=== PATIENT | male | born 1995 | race Two or more races ===

== ENCOUNTER 2020-12-07 20:11 | Inpatient (IN) | payer OTHER ==
[~2020-12-07] VITALS: Ht 167.6 cm; Wt 70.3 kg
[2020-12-07] MEDS ORDERED: PROTONIX20 MG PO (20:25)
[2020-12-07] MEDS ORDERED: CARAFATE1 GM/10 ML PO (20:25)
[2020-12-08] MEDS ORDERED: METRONIDAZOLE500 MG (11:23)
[2020-12-08] MEDS ORDERED: CIPROFLOXACIN500 MG (11:23)
== END 2021-01-07 16:31 | disposition home or self-care (01) | DRG 387 ==
LOC: ER 20:11 → MEDJ 12-08 09:12 → SEC-K 12-08 09:12 → MEDJ 12-08 14:56
PROVIDERS: ADMIT Internal Medicine; ATTEND Internal Medicine
PROC: 0DBP8ZX Excision of Rectum, Via Natural or Artificial Opening Endoscopic, Diagnostic (ICD-10-PCS; principal; 2020-12-14)
PROC: 0DBN8ZX Excision of Sigmoid Colon, Via Natural or Artificial Opening Endoscopic, Diagnostic (ICD-10-PCS; 2020-12-14)
PROC: 02HV33Z Insertion of Infusion Device into Superior Vena Cava, Percutaneous Approach (ICD-10-PCS; 2020-12-22)
PROC: 30233N1 Transfusion of Nonautologous Red Blood Cells into Peripheral Vein, Percutaneous Approach (ICD-10-PCS; 2021-01-03)
DX: K51.011 Ulcerative (chronic) pancolitis with rectal bleeding (principal); F43.21 Adjustment disorder with depressed mood; D64.9 Anemia, unspecified; D18.09 Hemangioma of other sites

== ENCOUNTER 2021-01-09 05:21 | Inpatient (IN) | payer OTHER ==
[~2021-01-09] VITALS: Ht 170.2 cm; Wt 54.0 kg
[~2021-01-09 05:21] MED LIST: CARAFATE1 GM/10 ML PO; CIPROFLOXACIN500 MG; METRONIDAZOLE500 MG; PROTONIX20 MG PO
[2021-01-09] MEDS ORDERED: CARAFATE1 GM (05:39)
[2021-01-09] MEDS ORDERED: RAYOS5 MG (05:39)
[2021-01-09] MEDS ORDERED: PROTONIX40 M1 (05:39)
[2021-01-09] MEDS ORDERED: PRE PROTEIN 2030 ML (05:40)
== END 2021-01-26 17:58 | disposition designated cancer center or children's hospital (05) | DRG 387 ==
LOC: ER 05:21 → MEDJ 10:53 → MEDI 10:53
PROVIDERS: ADMIT Internal Medicine; ATTEND Internal Medicine
PROC: 30233N1 Transfusion of Nonautologous Red Blood Cells into Peripheral Vein, Percutaneous Approach (ICD-10-PCS; principal; 2021-01-10)
PROC: 02HV33Z Insertion of Infusion Device into Superior Vena Cava, Percutaneous Approach (ICD-10-PCS; 2021-01-10)
DX: K51.811 Other ulcerative colitis with rectal bleeding (principal); Z20.822 Contact with and (suspected) exposure to COVID-19; F43.20 Adjustment disorder, unspecified; R73.9 Hyperglycemia, unspecified